=== PATIENT | female | born 2000 | race Caucasian/White ===

== ENCOUNTER 2018-11-17 14:52 | Emergency (ER) | payer OTHER ==
[~2018-11-17] VITALS: Ht 172.7 cm; Wt 63.5 kg
[2018-11-17] MEDS ORDERED: ALPR.5 PO (15:10)
[2018-11-17] MEDS ORDERED: LAMO100 PO (15:10)
[2018-11-17] MEDS ORDERED: Zithromax250 MG PO (16:27)
== END 2018-11-17 16:42 | disposition home or self-care (01) ==
LOC: ER 14:52
DX: J18.9 Pneumonia, unspecified organism (principal); Z79.899 Other long term (current) drug therapy; F41.9 Anxiety disorder, unspecified
CPT/HCPCS: 71046; 99283-25

== ENCOUNTER → 2019-03-14 | Outpatient (CLI) | payer OTHER ==
[~2019-03-14] MED LIST: ALPR.5 PO; LAMO100 PO; Zithromax250 MG PO
== END | disposition home or self-care (01) ==
LOC: LAB SHORT 18:44 → LAB 18:44
PROVIDERS: Obstetrics & Gynecology
DX: Z12.4 Encounter for screening for malignant neoplasm of cervix (principal)
CPT/HCPCS: G0123

== ENCOUNTER → 2019-04-24 | Outpatient (CLI) | payer OTHER ==
[~2019-04-24] MED LIST changes: +CEPH500 PO; +PRENATAL TABLE1 EAC2
[2019-04-24 15:11] LABS: Progesterone 12.8 ng/mL
== END | disposition home or self-care (01) ==
LOC: LAB SHORT 11:51 → LAB 11:51
PROVIDERS: Obstetrics & Gynecology
DX: Z34.81 Encounter for supervision of other normal pregnancy, first trimester (principal)
CPT/HCPCS: 84144; 84702

== ENCOUNTER 2019-05-03 19:01 | Emergency (ER) | payer OTHER ==
[~2019-05-03] VITALS: Ht 172.7 cm; Wt 62.1 kg
[~2019-05-03 19:01] MED LIST changes: -CEPH500 PO; -PRENATAL TABLE1 EAC2
[2019-05-03 19:58] LABS: Source, Urine Clean Catch
[2019-05-03 20:00] LABS: Bilirubin, Urine Neg (Neg); Blood, Urine 1+ (Neg); Glucose Qualitative, Urine Neg (Neg); Ketones, Urine Neg (Neg); Leukocyte Esterase, Urine 1+ (Neg); Nitrite, Urine Neg (Neg); Protein, Urine 2+ (Neg); Specific Gravity, Urine 1.015 (1.003-1.022); Urobilinogen, Urine NORM (Normal)
[2019-05-03 20:08] LABS: Appearance, Urine Cloudy (Clear); Color, Urine Yellow (P-Yellow)
[2019-05-03 20:14] LABS: Amorphous Mod (0-Heavy)
[2019-05-03 20:15] LABS: Bacteria Mod /hpf; Squamous Epithelial Cells Few /hpf (Few)
[2019-05-03] MEDS ORDERED: PRENATAL TABLE1 EAC2 (20:31)
[2019-05-03 20:40] LABS: BASOPHILS ABSOLUTE AUTO 0.03 K/mm3 (0.00-0.23); BASOPHILS PERCENT AUTO 0 % (0-2); EOSINOPHILS PERCENT AUTO 1 % (0-6); Hematocrit 37.6 % (33.0-51.0); Hemoglobin 12.6 g/dL (11.5-16.0); IMMATURE GRAN ABSOLUTE AUTO 0.07 K/mm3 (0.00-0.10); IMMATURE GRAN PERCENT AUTO 1 % (0-1); LYMPHOCYTES ABSOLUTE AUTO 2.68 K/mm3 (0.84-5.20); LYMPHOCYTES PERCENT AUTO 19 % (21-46); MONOCYTES PERCENT AUTO 7 % (4-13); Mean Corpuscular HGB 29.4 pg (26.0-34.0); Mean Corpuscular HGB Conc 33.5 g/dL (31.5-36.5); Mean Corpuscular Volume 88 fL (80-100); Mean Platelet Volume 10.4 fL (9.1-12.4); NEUTROPHILS ABSOLUTE AUTO 10.04 K/mm3 (1.96-9.15); NEUTROPHILS PERCENT AUTO 73 % (41-73); Platelet Count 255 K/mm3 (150-400); RDW Coefficient Variation 12.7 % (11.7-14.2); RDW Standard Deviation 41.1 fL (35.1-46.3); Red Blood Cell Count 4.28 M/mm3 (3.80-5.20); White Blood Cell Count 13.82 K/mm3 (4.00-11.30)
[2019-05-03 20:59] LABS: Alanine Aminotransfer (ALT/SGP 23 U/L (12-78); Albumin, Blood 3.9 g/dL (3.4-5.0); Albumin/Globulin Ratio 1.1 (0.8-1.8); Alk Phos 54 U/L (50-136); Anion Gap 8 mmol/L (6-16); Aspartate Aminotrans (AST/SGOT 14 U/L (12-37); Bilirubin, Total 0.3 mg/dL (0.1-1.0); Blood Urea Nitrogen 7 mg/dL (8-24); Bun/Creatinine Ratio 12.1 (12.0-20.0); CO2, Blood 23 mmol/L (21-32); Calcium, Blood 8.7 mg/dL (8.5-10.1); Chloride, Blood 105 mmol/L (98-108); Creatinine, Blood 0.58 mg/dL (0.40-1.00); Globulin, Blood 3.4 g/dL (2.2-4.0); Glomerular Filtration Rate >60 (60-); Glucose, Blood 83 mg/dL (70-99); Potassium, Blood 3.4 mmol/L (3.5-5.5); Sodium, Blood 136 mmol/L (136-145); Total Protein, Blood 7.3 g/dL (6.4-8.2)
[2019-05-03 21:18] LABS: Beta HCG, Quantitative, Serum 72585 mIU/mL (0-3)
[2019-05-03] MEDS ORDERED: CEPH500 PO (22:50)
== END 2019-05-03 22:59 | disposition home or self-care (01) ==
LOC: ER 19:01
PROVIDERS: Physician Assistant
DX: O23.41 Unspecified infection of urinary tract in pregnancy, first trimester (principal); O99.89 Other specified diseases and conditions complicating pregnancy, childbirth and the puerperium; R42 Dizziness and giddiness; Z3A.01 Less than 8 weeks gestation of pregnancy; Z79.899 Other long term (current) drug therapy
CPT/HCPCS: 36415; 80053; 81001; 84702; 85025; 87086; 99284; A9270-GY

== ENCOUNTER → 2019-05-11 | Outpatient (CLI) | payer OTHER ==
[~2019-05-11] MED LIST changes: +CEPH500 PO; +PRENATAL TABLE1 EAC2
[2019-05-13 07:07] LABS: CHLAMYDIA TRACHOMATIS, NAA Negative (Negative); NEISSERIA GONORRHOEAE, NAA Negative (Negative)
== END | disposition home or self-care (01) ==
LOC: LAB SHORT 12:03 → LAB 12:03
PROVIDERS: Obstetrics & Gynecology
DX: Z34.81 Encounter for supervision of other normal pregnancy, first trimester (principal)
CPT/HCPCS: 87491; 87591

== ENCOUNTER → 2019-09-24 | Outpatient (CLI) | payer OTHER ==
[2019-09-24 19:47] LABS: BASOPHILS ABSOLUTE AUTO 0.02 K/mm3 (0.00-0.23); BASOPHILS PERCENT AUTO 0 % (0-2); EOSINOPHILS ABSOLUTE AUTO 0.06 K/mm3 (0.00-0.68); EOSINOPHILS PERCENT AUTO 1 % (0-6); Hematocrit 36.7 % (33.0-51.0); IMMATURE GRAN ABSOLUTE AUTO 0.07 K/mm3 (0.00-0.10); IMMATURE GRAN PERCENT AUTO 1 % (0-1); LYMPHOCYTES ABSOLUTE AUTO 1.68 K/mm3 (0.84-5.20); LYMPHOCYTES PERCENT AUTO 17 % (21-46); MONOCYTES ABSOLUTE AUTO 0.72 K/mm3 (0.16-1.47); MONOCYTES PERCENT AUTO 7 % (4-13); Mean Corpuscular HGB 29.4 pg (26.0-34.0); Mean Corpuscular HGB Conc 32.7 g/dL (31.5-36.5); Mean Corpuscular Volume 90 fL (80-100); Mean Platelet Volume 10.8 fL (9.1-12.4); NEUTROPHILS ABSOLUTE AUTO 7.56 K/mm3 (1.96-9.15); NEUTROPHILS PERCENT AUTO 75 % (41-73); Platelet Count 247 K/mm3 (150-400); RDW Coefficient Variation 13.3 % (11.7-14.2); RDW Standard Deviation 43.9 fL (35.1-46.3); Red Blood Cell Count 4.08 M/mm3 (3.80-5.20); White Blood Cell Count 10.11 K/mm3 (4.00-11.30)
== END | disposition home or self-care (01) ==
LOC: LAB 17:45 → LAB SHORT 17:45
PROVIDERS: Family Medicine
DX: Z34.83 Encounter for supervision of other normal pregnancy, third trimester (principal); Z3A.28 28 weeks gestation of pregnancy
CPT/HCPCS: 82950; 85025

== ENCOUNTER 2019-11-10 03:17 | Inpatient (IN) | payer OTHER ==
[~2019-11-10] VITALS: Ht 170.2 cm; Wt 79.5 kg
[2019-11-10 04:03] LABS: BASOPHILS ABSOLUTE AUTO 0.03 K/mm3 (0.00-0.23); BASOPHILS PERCENT AUTO 0 % (0-2); EOSINOPHILS ABSOLUTE AUTO 0.07 K/mm3 (0.00-0.68); EOSINOPHILS PERCENT AUTO 0 % (0-6); Hemoglobin 13.2 g/dL (11.5-16.0); IMMATURE GRAN ABSOLUTE AUTO 0.12 K/mm3 (0.00-0.10); IMMATURE GRAN PERCENT AUTO 1 % (0-1); LYMPHOCYTES ABSOLUTE AUTO 2.68 K/mm3 (0.84-5.20); LYMPHOCYTES PERCENT AUTO 17 % (21-46); MONOCYTES ABSOLUTE AUTO 0.98 K/mm3 (0.16-1.47); MONOCYTES PERCENT AUTO 6 % (4-13); Mean Corpuscular HGB 28.8 pg (26.0-34.0); Mean Corpuscular Volume 87 fL (80-100); Mean Platelet Volume 11.8 fL (9.1-12.4); NEUTROPHILS ABSOLUTE AUTO 12.18 K/mm3 (1.96-9.15); NEUTROPHILS PERCENT AUTO 76 % (41-73); Platelet Count 280 K/mm3 (150-400); RDW Standard Deviation 41.5 fL (35.1-46.3); Red Blood Cell Count 4.59 M/mm3 (3.80-5.20); White Blood Cell Count 16.06 K/mm3 (4.00-11.30)
--- NOTE | 2019-11-10 04:14 | NUR ---
Dr Millan states they have had discussion on this matter and there are nor present concerns
--- NOTE | 2019-11-10 05:37 | NUR ---
4425 pt screaming with contractions and sdtates need to push. Instructed and demonstrated breathing and panting through contractions. Pt following instructions well.
[2019-11-10 12:59] LABS: BASOPHILS ABSOLUTE AUTO 0.02 K/mm3 (0.00-0.23); BASOPHILS PERCENT AUTO 0 % (0-2); EOSINOPHILS PERCENT AUTO 0 % (0-6); IMMATURE GRAN ABSOLUTE AUTO 0.11 K/mm3 (0.00-0.10); IMMATURE GRAN PERCENT AUTO 1 % (0-1); LYMPHOCYTES ABSOLUTE AUTO 2.32 K/mm3 (0.84-5.20); LYMPHOCYTES PERCENT AUTO 13 % (21-46); MONOCYTES ABSOLUTE AUTO 1.37 K/mm3 (0.16-1.47); MONOCYTES PERCENT AUTO 8 % (4-13); Mean Corpuscular HGB 29.5 pg (26.0-34.0); Mean Corpuscular HGB Conc 33.3 g/dL (31.5-36.5); Mean Corpuscular Volume 89 fL (80-100); Mean Platelet Volume 11.5 fL (9.1-12.4); NEUTROPHILS ABSOLUTE AUTO 13.53 K/mm3 (1.96-9.15); NEUTROPHILS PERCENT AUTO 78 % (41-73); Platelet Count 224 K/mm3 (150-400); RDW Coefficient Variation 13.2 % (11.7-14.2); RDW Standard Deviation 42.8 fL (35.1-46.3); Red Blood Cell Count 3.05 M/mm3 (3.80-5.20); White Blood Cell Count 17.35 K/mm3 (4.00-11.30)
--- NOTE | 2019-11-10 18:27 | NUR ---
TELEPHONE UPDATE TO DR. RIGGS THIS AM I NOTICED A DIME SIZED HEMATOMA ABOUT 6 O'CLOCK, WHEN SPREADING HER LABIA. THERE WAS DARK PURPLE SWOLLEN TISSUE AND WHAT APPEARED TO BE A BLOOD CLOT THAT DIDNT WIPE AWAY. HER BLEEDING WAS SMALL AND HER FUNDUS WAS FIRM. SHE WAS ABLE TO VOID ON HER OWN. I MEDICATED HER WITH TORADOL AND PERCOCET THROUGHOUT THE DAY FOR THE PAIN. SHE ALSO HAD KAI MEDS AT BEDSIDE AND CONSTANT ICE APPLIED TO AREA. SHE HAD A SIGNIFICANT DROP IN HER HGB/HCT. HGB WENT FROM 13.2 DOWN TO 9.0 AND HCT WENT DOWN FROM 40.0 TO [address] RIGGS OF THIS AND SUGGESTED A REPEAT CBC. VERBAL ORDER GIVEN FOR REPEAT CBC NOW. I RECHECKED HER HEMATOMA JUST NOW AND IT WENT FROM DIME SIZED TO TRIPLE IN LENGTH AND NOW VISIBLE WITHOUT SPREADING HER LABIA. DR. RIGGS WOULD LIKE THIS TO BE RECHECKED IN 1 HOUR WITH THE ONCOMING RN AND FOR THE MD TO BE NOTIFIED IF IT KEEPS GETTING BIGGER. WILL PASS THIS ORDER OFF IN REPORT.
[2019-11-10 18:49] LABS: BASOPHILS ABSOLUTE AUTO 0.01 K/mm3 (0.00-0.23); BASOPHILS PERCENT AUTO 0 % (0-2); EOSINOPHILS ABSOLUTE AUTO 0.08 K/mm3 (0.00-0.68); EOSINOPHILS PERCENT AUTO 1 % (0-6); Hematocrit 23.9 % (33.0-51.0); Hemoglobin 7.7 g/dL (11.5-16.0); IMMATURE GRAN ABSOLUTE AUTO 0.07 K/mm3 (0.00-0.10); IMMATURE GRAN PERCENT AUTO 1 % (0-1); LYMPHOCYTES ABSOLUTE AUTO 3.04 K/mm3 (0.84-5.20); LYMPHOCYTES PERCENT AUTO 22 % (21-46); MONOCYTES ABSOLUTE AUTO 1.15 K/mm3 (0.16-1.47); MONOCYTES PERCENT AUTO 8 % (4-13); Mean Corpuscular HGB 28.8 pg (26.0-34.0); Mean Corpuscular HGB Conc 32.2 g/dL (31.5-36.5); Mean Corpuscular Volume 90 fL (80-100); Mean Platelet Volume 11.4 fL (9.1-12.4); NEUTROPHILS ABSOLUTE AUTO 9.57 K/mm3 (1.96-9.15); NEUTROPHILS PERCENT AUTO 69 % (41-73); Platelet Count 202 K/mm3 (150-400); RDW Coefficient Variation 13.2 % (11.7-14.2); RDW Standard Deviation 43.6 fL (35.1-46.3); Red Blood Cell Count 2.67 M/mm3 (3.80-5.20); White Blood Cell Count 13.92 K/mm3 (4.00-11.30)
--- NOTE | 2019-11-10 20:29 | NUR ---
ORDER FOR CT ON HOLD PER UNTIL H&H RESULT COMES BACK. HBG OF 7.4 OR ABOVE, OK TO CANCEL CT PER PHYSICIAN.
[2019-11-10 21:33] LABS: Hematocrit 24.1 % (33.0-51.0); Hemoglobin 7.8 g/dL (11.5-16.0)
[2019-11-11 08:53] LABS: BASOPHILS ABSOLUTE AUTO 0.02 K/mm3 (0.00-0.23); BASOPHILS PERCENT AUTO 0 % (0-2); EOSINOPHILS ABSOLUTE AUTO 0.18 K/mm3 (0.00-0.68); EOSINOPHILS PERCENT AUTO 2 % (0-6); Hematocrit 24.4 % (33.0-51.0); Hemoglobin 7.9 g/dL (11.5-16.0); IMMATURE GRAN ABSOLUTE AUTO 0.08 K/mm3 (0.00-0.10); IMMATURE GRAN PERCENT AUTO 1 % (0-1); LYMPHOCYTES ABSOLUTE AUTO 2.72 K/mm3 (0.84-5.20); LYMPHOCYTES PERCENT AUTO 24 % (21-46); MONOCYTES ABSOLUTE AUTO 0.97 K/mm3 (0.16-1.47); MONOCYTES PERCENT AUTO 9 % (4-13); Mean Corpuscular HGB 29.4 pg (26.0-34.0); Mean Corpuscular HGB Conc 32.4 g/dL (31.5-36.5); Mean Corpuscular Volume 91 fL (80-100); NEUTROPHILS ABSOLUTE AUTO 7.23 K/mm3 (1.96-9.15); NEUTROPHILS PERCENT AUTO 65 % (41-73); Platelet Count 190 K/mm3 (150-400); RDW Coefficient Variation 13.2 % (11.7-14.2); RDW Standard Deviation 43.4 fL (35.1-46.3); Red Blood Cell Count 2.69 M/mm3 (3.80-5.20)
[2019-11-11] MEDS ORDERED: Norco 5-325 Ta1 EACH PO (09:14)
[2019-11-11] MEDS ORDERED: DOCU100 PO (09:14)
[2019-11-11] MEDS ORDERED: IRON160 M2 PO (09:15)
--- NOTE | 2019-11-11 09:54 | NUR ---
RN ROUNDED TO HELP W/ . PT IS FIRST TIME MOM, NB IS 35 WEEKS GESTATION. RN TALKED W/ PT AND PT'S MOTHER ABOUT THE EXPECTATIONS OF A 35 WEEK OLD NB. INSTRUCT/DEMO TUBE AND SYRINGE FEEDING AT THE BREAST, WIDENING LATCH, CORRECT POSITIONING, NIPPLE SHAPE AFTER FEEDS, AND HAND EXPRESSION. INSTRUCTED PT TO PLACE NB TO THE BREAST EVERY 2-3 HOURS, SKIN TO SKIN, AND HAND EXPRESSION COLOSTRUM INTO NB'S MOUTH. INSTRUCTED TO SUPPLEMENT W/ 10CC OR MORE OF FORMULA W/ FEEDS TO ENSURE NB IS GETTING ENOUGH CALORIES. RN TALKED W/ PT ABOUT LENGTH OF FEEDS AND CALORIE INTAKE VS CALORIE BURN DURING FEEDSING. PT AND PT'S MOTHER BOTH VERBALIZED UNDERSTANDING AND AGREE W/ PLANS TO FEED NB. RN WILL ATTEMPT TO ROUND AGAIN WHEN NB IF FEEDING TO BETTER ASSIST PT.
--- NOTE | 2019-11-11 13:36 | NUR ---
PT DISCHARGED TO [facility] STATUS
== END 2019-11-11 13:30 | disposition home or self-care (01) | DRG 806 ==
LOC: OBS 03:17 → BC 03:22
PROVIDERS: ADMIT Family Medicine
PROC: 10E0XZZ Delivery of Products of Conception, External Approach (ICD-10-PCS; principal; 2019-11-10)
PROC: 0UQG7ZZ Repair Vagina, Via Natural or Artificial Opening (ICD-10-PCS; 2019-11-10)
DX: O62.3 Precipitate labor (principal); O71.4 Obstetric high vaginal laceration alone; Z37.0 Single live birth; O72.1 Other immediate postpartum hemorrhage; D62 Acute posthemorrhagic anemia; Z3A.35 35 weeks gestation of pregnancy; P15.5 Birth injury to external genitalia; O90.81 Anemia of the puerperium
CPT/HCPCS: 36415; 85014; 85018; 85025; 86850; 86900; 86901; J1885; J2590; J3010

== ENCOUNTER → 2023-04-21 | Outpatient (CLI) | payer OTHER ==
[~2023-04-21] MED LIST changes: +DOCU100 PO; +IRON160 M2 PO; +Norco 5-325 Ta1 EACH PO
== END | disposition home or self-care (01) ==
LOC: LAB 12:07 → LAB SHORT 12:07
DX: Z34.83 Encounter for supervision of other normal pregnancy, third trimester (principal); Z3A.36 36 weeks gestation of pregnancy
CPT/HCPCS: 87081; 87150

== ENCOUNTER 2023-05-01 09:06 | Inpatient (IN) | payer OTHER ==
[~2023-05-01] VITALS: Ht 172.7 cm; Wt 90.0 kg
[2023-05-01] VITALS (19 sets, daily range): BP systolic 104–158; BP diastolic 58–93
[2023-05-01 09:37] LABS: BASOPHILS ABSOLUTE AUTO 0.03 K/mm3 (0.00-0.23); BASOPHILS PERCENT AUTO 0 % (0-2); EOSINOPHILS PERCENT AUTO 1 % (0-6); Hematocrit 34.8 % (33.0-51.0); Hemoglobin 11.8 g/dL (11.5-16.0); IMMATURE GRAN ABSOLUTE AUTO 0.11 K/mm3 (0.00-0.10); IMMATURE GRAN PERCENT AUTO 1 % (0-1); LYMPHOCYTES ABSOLUTE AUTO 2.39 K/mm3 (0.84-5.20); LYMPHOCYTES PERCENT AUTO 21 % (21-46); MONOCYTES ABSOLUTE AUTO 1.15 K/mm3 (0.16-1.47); MONOCYTES PERCENT AUTO 10 % (4-13); Mean Corpuscular HGB 28.9 pg (26.0-34.0); Mean Corpuscular HGB Conc 33.9 g/dL (31.5-36.5); Mean Corpuscular Volume 85 fL (80-100); Mean Platelet Volume 11.4 fL (9.1-12.4); NEUTROPHILS ABSOLUTE AUTO 7.86 K/mm3 (1.96-9.15); NEUTROPHILS PERCENT AUTO 68 % (41-73); Platelet Count 269 K/mm3 (150-400); RDW Coefficient Variation 14.2 % (11.7-14.2); RDW Standard Deviation 43.8 fL (35.1-46.3); Red Blood Cell Count 4.09 M/mm3 (3.80-5.20); White Blood Cell Count 11.64 K/mm3 (4.00-11.30)
[2023-05-01 16:11] LABS: Hematocrit 29.7 % (33.0-51.0); Mean Corpuscular HGB 28.2 pg (26.0-34.0); Mean Corpuscular HGB Conc 33.7 g/dL (31.5-36.5); Mean Corpuscular Volume 84 fL (80-100); Mean Platelet Volume 11.2 fL (9.1-12.4); Platelet Count 277 K/mm3 (150-400); RDW Standard Deviation 43.4 fL (35.1-46.3); Red Blood Cell Count 3.54 M/mm3 (3.80-5.20); White Blood Cell Count 25.73 K/mm3 (4.00-11.30)
[2023-05-01 16:37] LABS: BAND PERCENT MAN 16 % (0-8); BASOPHILS PERCENT MAN 0 % (0-2); EOSINOPHILS PERCENT MAN 0 % (0-6); LYMPHOCYTES ABSOLUTE MAN 1.28 K/mm3 (0.84-5.20); LYMPHOCYTES PERCENT MAN 5 % (21-46); MONOCYTES ABSOLUTE MAN 2.05 K/mm3 (0.16-1.47); MONOCYTES PERCENT MAN 8 % (4-13); NEUTROPHILS ABSOLUTE MAN 22.38 K/mm3 (1.96-9.15); SEG NEUTROPHILS PERCENT MAN 71 % (41-73); TOTAL CELLS COUNTED 100
--- NOTE | 2023-05-01 16:44 | NUR ---
ASSUMED CARE OF PATIENT AT 1330 FROM JAYRO FARRAR
[2023-05-02 04:58] VITALS: BP 104/63
[2023-05-02 06:21] LABS: Hematocrit 24.5 % (33.0-51.0); Hemoglobin 8.1 g/dL (11.5-16.0); Mean Corpuscular HGB 28.5 pg (26.0-34.0); Mean Corpuscular HGB Conc 33.1 g/dL (31.5-36.5); Mean Corpuscular Volume 86 fL (80-100); Platelet Count 234 K/mm3 (150-400); RDW Coefficient Variation 14.6 % (11.7-14.2); RDW Standard Deviation 45.1 fL (35.1-46.3); Red Blood Cell Count 2.84 M/mm3 (3.80-5.20); White Blood Cell Count 16.14 K/mm3 (4.00-11.30)
[2023-05-02 07:43] VITALS: BP 111/62
--- NOTE | 2023-05-02 08:40 | NUR ---
PT REMINDED THAT PADS HAVE TO BE WEIGHED FOR THE FIRST 24 HOURS DUE TO BLEEDING. PT INSTRUCTED TO CALL EACH TIME SHE CHANGES HER PAD PRIOR TO THROWING THE PAD AWAY SO THAT WE CAN WEIGH IT. PERINEUM WNL. ICE PACK APPLIED AND WITCH BALA PADS AND BENZOCAINE SPRAY PROVIDED FOR COMFORT.
[2023-05-02 11:11] VITALS: BP 111/57
[2023-05-02 15:47] VITALS: BP 117/59
[2023-05-02 17:23] VITALS: BP 123/74
--- NOTE | 2023-05-02 17:36 | NUR ---
DISCHARGE NOTE; PT GIVEN DC INSTRUCTIONS, ENCOURAGED TO ASK QUESTIONS AT THIS TIME. PT DENIES ANY QUESTIONS AT THIS TIME. PT GIVEN [facility] APPT CARD FOR 05/04/23 AND INSTRUCTED TO ARRIVE 15MINS PRIOR TO APPT TIME. PT IS VOIDING AND STOOLING. BLEEDING IS WNL AT THIS TIME.
== END 2023-05-02 17:40 | disposition home or self-care (01) | DRG 806 ==
LOC: OBS 09:06 → BC 09:07 → OBS 09:11 → BC 05-02 17:40
PROVIDERS: ADMIT Family Medicine
PROC: 10E0XZZ Delivery of Products of Conception, External Approach (ICD-10-PCS; principal; 2023-05-01)
PROC: 0HQ9XZZ Repair Perineum Skin, External Approach (ICD-10-PCS; 2023-05-01)
PROC: 0UQG7ZZ Repair Vagina, Via Natural or Artificial Opening (ICD-10-PCS; 2023-05-01)
DX: O42.02 Full-term premature rupture of membranes, onset of labor within 24 hours of rupture (principal); O71.4 Obstetric high vaginal laceration alone; Z37.0 Single live birth; Z3A.37 37 weeks gestation of pregnancy; O70.0 First degree perineal laceration during delivery; O67.8 Other intrapartum hemorrhage; O99.824 Streptococcus B carrier state complicating childbirth
CPT/HCPCS: 36415; 85025; 85027; 86850; 86900; 86901; A9270; J0290; J1885; J2210; J2405; J2590; J2916; J3010; J7120

== ENCOUNTER → 2024-06-25 | Outpatient (CLI) | payer OTHER ==
[2024-07-05 14:33] LABS: HPV HIGH RISK BY TMA Detected; HPV SOURCE Cervical
[2024-07-06 00:43] LABS: HPV GENOTYPE 16 BY TMA Not Detected; HPV GENOTYPE 18/45 BY TMA Detected; HPVG SOURCE Cervical
== END | disposition home or self-care (01) ==
LOC: LAB 17:09 → LAB SHORT 17:09
PROVIDERS: Family Medicine
DX: Z12.4 Encounter for screening for malignant neoplasm of cervix (principal)
CPT/HCPCS: 87624; 87625; G0123

== ENCOUNTER → 2024-08-07 | Outpatient (CLI) | payer OTHER | END | disposition home or self-care (01) | LOC: LAB SHORT 11:52 → LAB 11:52 | DX: R87.613 High grade squamous intraepithelial lesion on cytologic smear of cervix (HGSIL) (principal); R87.612 Low grade squamous intraepithelial lesion on cytologic smear of cervix (LGSIL); R87.810 Cervical high risk human papillomavirus (HPV) DNA test positive | CPT/HCPCS: 88305 ==